=== PATIENT | female | born 1970 | race Caucasian/White ===

== ENCOUNTER 2017-12-26 07:12 | Day surgery (SDC) | payer BC ==
[~2017-12-26] VITALS: Ht 149.9 cm; Wt 64.4 kg
[~2017-12-26 07:12] MED LIST: ALEVE220 M2 PO; CRESTOR40 MG PO; ESSENTIAL WOMA1 EAC1 PO; FENOFIBRATE160 M1 PO; GLUCOPHAGE500 MG PO; MAXALT10 MG PO; NEXIUM20 MG PO; PHENTERMINE HCL30 MG PO; SYNTHROID50 MCG PO; VITAMIN D2000 UNI1 PO
[2017-12-26 07:55] VITALS: BP 139/82
[2017-12-26] MEDS ORDERED: NORCO 5/3251 TABLET PO (10:15)
[2017-12-26 11:35] VITALS: BP 154/76
[2017-12-26 12:35] VITALS: BP 133/70
[2017-12-26 13:41] VITALS: BP 148/90
== END 2017-12-26 13:44 | disposition home or self-care (01) ==
LOC: SDC 07:12
PROVIDERS: Surgery
PROC: 0FT44ZZ Resection of Gallbladder, Percutaneous Endoscopic Approach (ICD-10-PCS; principal; 2017-12-26)
DX: K80.10 Calculus of gallbladder with chronic cholecystitis without obstruction (principal); E03.9 Hypothyroidism, unspecified; G47.33 Obstructive sleep apnea (adult) (pediatric); K21.9 Gastro-esophageal reflux disease without esophagitis; E78.00 Pure hypercholesterolemia, unspecified; E11.9 Type 2 diabetes mellitus without complications; E66.3 Overweight; Z68.28 Body mass index [BMI] 28.0-28.9, adult; Z79.84 Long term (current) use of oral hypoglycemic drugs
CPT/HCPCS: 82948; 88304; 93005; J0330; J1170; J1885; J2405; J2710; J3010; J7643; S0074